=== PATIENT | female | born 1995 | race Caucasian/White ===

== ENCOUNTER 2016-12-31 23:07 | Emergency (ER) | payer BC, OTHER ==
[~2016-12-31] VITALS: Ht 162.6 cm; Wt 59.0 kg
[2017-01-01] MEDS ORDERED: NAPR500T PO (01:21)
[2017-01-01] MEDS: NAPROXEN 250 MG TAB PO ONE (01:33)
[2017-01-01 01:39] VITALS: BP 127/63
--- NOTE | 2017-01-01 08:19 | REP ---
Clinical: Right hip pain. Technique: Neutral and frog lateral views of the right hip. Findings: Osseous structures, joint spaces, and surrounding soft tissues are normal. No acute or healed fracture/dislocation. No overt osteoarthritic degenerative changes. No subcutaneous emphysema or radiodense foreign body. Impression: Normal right hip radiographs. Signed by Eliu Poole MD 01/01/2017 08:10 A
== END 2017-01-01 01:42 | disposition home or self-care (01) ==
LOC: M ED 01-01 00:30
DX: S76.011A Strain of muscle, fascia and tendon of right hip, initial encounter (principal); X58.XXXA Exposure to other specified factors, initial encounter; Y92.89 Other specified places as the place of occurrence of the external cause; Y93.89 Activity, other specified; Y99.8 Other external cause status

== ENCOUNTER 2017-01-22 14:09 | Emergency (ER) | payer BC ==
[~2017-01-22] VITALS: Ht 162.6 cm; Wt 59.0 kg
[~2017-01-22 14:09] MED LIST: NAPR500T PO
[2017-01-22] MEDS ORDERED: NORCO, ANEXSIA 5/325MG TABLET (HYDROcodone/ACETAMINOPHEN) PO ONE (15:00)
--- NOTE | 2017-01-22 16:21 | REP ---
PELVIC ULTRASOUND: Real-time sonographic evaluation of the pelvis performed utilizing transabdominal and endovaginal technique. The bladder measures 1.3 x 2.8 x 4.2 cm. The uterus measures 7.6 x 3.8 x 4.3 cm. The uterus has a partial septate configuration. The left side of the endometrium measures 6 mm in AP dimension and the right side 5 mm. There is no endometrial fluid collection. The ovaries are normal in size and echotexture, right ovary measuring 4.2 x 2.5 x 1.8 cm and left ovary 4.7 x 2.1 x 2.7 cm. There is no adnexal mass or free fluid. There is blood flow seen in each ovary with duplex Doppler evaluation, with no torsion, RI right ovary 0.49, left ovary 0.56. Nabothian cysts are seen in the region of the cervix. IMPRESSION: Essentially negative pelvic ultrasound. No torsion. No mass or free fluid. Signed by David Schuler MD 01/23/2017 03:19 P
[2017-01-22] MEDS ORDERED: ACET30TAB PO (16:23)
[2017-01-22 16:25] VITALS: BP 123/59
== END 2017-01-22 16:33 | disposition home or self-care (01) ==
LOC: M ED 15:35
DX: N94.6 Dysmenorrhea, unspecified (principal); R10.2 Pelvic and perineal pain

== ENCOUNTER 2019-09-09 21:56 | Emergency (ER) | payer BC, OTHER ==
[~2019-09-09] VITALS: Ht 162.6 cm; Wt 59.1 kg
[~2019-09-09 21:56] MED LIST changes: +ACET-716 PO; +NAPR-837 PO; -NAPR500T PO
[2019-09-09] MEDS ORDERED: IBUP-1022 PO (23:44)
[2019-09-09] MEDS ORDERED: LIDO5DIS41 TD (23:44)
[2019-09-09] MEDS ORDERED: BIOF4GEL4 TOP (23:44)
[2019-09-09] MEDS ORDERED: LIDOCAINE 5% (LIDODERM) PATCH TD ONE (23:45)
[2019-09-09] MEDS ORDERED: IBUPROFEN 600 MG TAB PO ONE (23:45)
[2019-09-09 23:59] VITALS: BP 119/74
[2019-09-10] MEDS ORDERED: **NOTE PATIENT COMMENT** MISC XX SCH (21:00)
== END 2019-09-10 00:26 | disposition home or self-care (01) ==
LOC: M ED 21:56
DX: S76.811A Strain of other specified muscles, fascia and tendons at thigh level, right thigh, initial encounter (principal); R59.0 Localized enlarged lymph nodes; Y93.9 Activity, unspecified; Y92.89 Other specified places as the place of occurrence of the external cause

== ENCOUNTER → 2020-08-14 | Outpatient (CLI) | payer SELFPAY ==
[~2020-08-14] MED LIST changes: +BIOF4GEL4 TOP; +IBUP-1022 PO; +LIDO5DIS41 TD
== END ==
LOC: M LABSMTC 10:51
PROVIDERS: ATTEND Pediatrics
DX: Z20.828 Contact with and (suspected) exposure to other viral communicable diseases (principal)